=== PATIENT | female | born 1965 | race Caucasian/White ===

== ENCOUNTER 2018-03-22 19:55 | Emergency (ER) | payer MEDICARE ==
[~2018-03-22] VITALS: Ht 160 cm; Wt 45.0 kg
[2018-03-22 20:00] VITALS: BP 165/87
[2018-03-22] MEDS ORDERED: SUMA25TA3 PO (20:09)
[2018-03-22] MEDS ORDERED: AMPH30TA2 PO (20:09)
== END 2018-03-22 20:32 | disposition left against medical advice (07) ==
LOC: ED 20:05
DX: R11.2 Nausea with vomiting, unspecified (principal); R19.7 Diarrhea, unspecified; R51 Headache; Z53.21 Procedure and treatment not carried out due to patient leaving prior to being seen by health care provider